=== PATIENT | male | born 1990 | race Two or more races ===

== ENCOUNTER 2022-08-07 14:22 | Emergency (ER) | payer SELFPAY ==
[~2022-08-07] VITALS: Ht 182.9 cm; Wt 90.9 kg
[2022-08-07 15:25] VITALS: BP 130/79
[2022-08-07] MEDS ORDERED: AMOX-117 PO (16:33)
[2022-08-07] MEDS ORDERED: TETanus/Pertussis (Acell)/Diphther VAC/PF (Tdap-Adult) 0.5ml syringe IMVAC ONE (16:35)
== END 2022-08-07 17:08 | disposition home or self-care (01) ==
LOC: EEVIPCON 14:23 → ER 14:23
DX: S51.851A Open bite of right forearm, initial encounter (principal); W54.0XXA Bitten by dog, initial encounter; Y93.89 Activity, other specified; Y92.89 Other specified places as the place of occurrence of the external cause; Y99.8 Other external cause status
CPT/HCPCS: 90471; 90715; 99283